=== PATIENT | female | born 1965 | race Caucasian/White ===

== ENCOUNTER 2020-09-20 06:55 | Day surgery (SDC) | payer MEDICAID ==
[~2020-09-20] VITALS: Ht 165.1 cm; Wt 44.9 kg
[~2020-09-20 06:55] MED LIST: ACE3T PO; ALBUAER3 IN; CETI1TAB36 PO; DIGO0.12 PO; ESOM40CA39 PO; FAMO40TA7 PO; FLUT110A INH; GUAI600T23 PO
[2020-09-20] MEDS ORDERED: ANGIOMAX 250 MG VIAL IV ONE ×2 (08:41→08:55)
[2020-09-20] MEDS ORDERED: VERAPAMIL 2.5MG/ML INJ 2ML VIAL IV ONE (08:42)
[2020-09-20] MEDS ORDERED: MIDAZOLAM HCL 2MG/2ML 2ml VIAL (1mg/ml) ONE (08:42)
[2020-09-20] MEDS ORDERED: HEPARIN SODIUM (PORCINE) 5000 UNITS/ML 1ML VIAL ONE (08:42)
[2020-09-20] MEDS ORDERED: SODIUM CHL 0.9% 0 ML ONE (08:42)
[2020-09-20] MEDS ORDERED: fentaNYL CITRATE 100 MCG/2 ML VL ONE (08:43)
[2020-09-20] MEDS ORDERED: LIDOCAINE 2%HCL (LOCAL ANESTH.) INJ 20ML MDV ONE (08:44)
[2020-09-20] MEDS ORDERED: IODIXANOL 320MG/ML 100ML BTL IV ONE (08:44)
== END 2020-09-20 12:10 | disposition home or self-care (01) ==
LOC: CATH 06:55
PROVIDERS: ATTEND Internal Medicine Cardiovascular Disease
DX: R94.39 Abnormal result of other cardiovascular function study (principal); Z87.891 Personal history of nicotine dependence; Z79.899 Other long term (current) drug therapy; Z88.1 Allergy status to other antibiotic agents; Z20.822 Contact with and (suspected) exposure to COVID-19
CPT/HCPCS: 93458; C1769; C1887; C1894; J0583; J1644; J2250; J3010; J7030; Q9967; U0003; 99152; 99153